=== PATIENT | male | born 1945 | race Caucasian/White ===

== ENCOUNTER 2017-04-18 09:19 | Emergency (ER) | payer OTHER ==
[2017-04-18 10:23] LABS: HEMOGLOBIN 14.3 gm/dl (14.0-17.5); RED BLOOD COUNT 4.65 M/UL (4.20-5.50); WHITE BLOOD COUNT 8.4 K/UL (4.5-11.0)
[2017-04-18 10:42] LABS: BUN/CREATININE RATIO 27 (0-10)
== END 2017-04-18 13:42 | disposition home or self-care (01) ==
LOC: ER1 09:19
PROVIDERS: Emergency Medicine
DX: R10.9 Unspecified abdominal pain (principal); I10 Essential (primary) hypertension; G20 Parkinson's disease; M19.90 Unspecified osteoarthritis, unspecified site; R31.9 Hematuria, unspecified; Z96.9 Presence of functional implant, unspecified
CPT/HCPCS: 80053; 81001; 83690; 84484; 85025; 87086; 96374; 96375; 99284; J2270; J2405